=== PATIENT | male | born 1940 | race Two or more races ===

== ENCOUNTER 2019-12-03 22:44 | Emergency (ER) | payer OTHER, MEDICAID ==
[~2019-12-03] VITALS: Ht 175.3 cm; Wt 81.6 kg
[~2019-12-03 22:44] MED LIST: ASPIR-LOW81 M1 PO; BENICAR PO; EFFIENT PO; GLU500 PO; MOT800 PO; ZOC20 PO
[2019-12-03 22:49] VITALS: Ht 175.3 cm; Wt 81.6 kg
[2019-12-03 23:59] VITALS: BP 153/72
== END 2019-12-03 23:59 | disposition home or self-care (01) ==
LOC: ED 22:44
DX: K08.89 Other specified disorders of teeth and supporting structures (principal); I10 Essential (primary) hypertension; E11.9 Type 2 diabetes mellitus without complications; Z88.8 Allergy status to other drugs, medicaments and biological substances